=== PATIENT | male | born 1950 | race Caucasian/White ===

== ENCOUNTER 2018-02-21 06:05 | Observation (INO) | payer OTHER ==
[2018-02-19 09:21] VITALS: BP 131/78
[2018-02-19 09:25] LABS: BASOPHILS % (AUTO) 0.7 % (0.0-5.0); EOSINOPHILS % (AUTO) 1.4 % (0.0-8.0); HEMATOCRIT 44.2 % (42-54); LYMPHOCYTES % (AUTO) 19.5 % (21.0-51.0); MEAN CORPUSCULAR HEMOGLOBIN 33.3 pg (27.0-33.0); MEAN CORPUSCULAR HGB CONC 34.3 g/dL (32.0-36.0); MEAN CORPUSCULAR VOLUME 97.1 fL (79-99); MONOCYTES % (AUTO) 9.1 % (3.0-13.0); NEUTROPHILS % (AUTO) 69.3 % (40.0-77.0); PLATELET COUNT (AUTO) 288 K/uL (130-400); RED BLOOD CELL COUNT(AUTO) 4.55 MIL/uL (4.50-6.20); RED CELL DISTRIBUTION WIDTH 13.6 % (11.0-15.5); WHITE BLOOD COUNT (AUTO) 6.5 K/uL (4.8-10.8)
[2018-02-19 09:35] LABS: CREATININE 1.2 mg/dL (0.5-1.5); POTASSIUM 4.2 mmol/L (3.5-5.1)
[2018-02-19 09:37] LABS: INR 1.32 (0.85-1.15); PARTIAL THROMBOPLASTIN TIME 33.8 SEC (26.3-35.5); PROTHROMBIN TIME 13.8 SEC (9.6-11.6)
[2018-02-21] VITALS (11 sets, daily range): BP systolic 109–137; BP diastolic 72–94
[~2018-02-21] VITALS: Ht 175.3 cm; Wt 133.9 kg
[~2018-02-21 06:05] MED LIST: AMIT25TA9 PO; ATOR20TA65 PO; BUPR-47 PO; CARB15DR94 OU; CHOL100018 PO; FURO40TA5 PO; HC530C TP; HYDR-4068 PO; ISOS30TA6 PO; LISI10TA7 PO; MECL-111 PO; MEMA10TA20 PO; METO100T14 PO; MIRT30TA6 PO; NITR0.4T50 SL; PREG100C PO; RANO10003 PO; RIVA6CAP5 PO; TOPI50TA24 PO; UREA TP; WARF-57 PO
[2018-02-21] MEDS ORDERED: SODIUM CHLORIDE 0.9% 1000ML 1,000 ML IV SCH (08:00)
[2018-02-21] MEDS ORDERED: LIDOCAINE HCL 1% MDV 50ML VIAL ONE (10:09)
[2018-02-21] MEDS ORDERED: MEPERIDINE-PF 25 MG/ML SYG ONE ×2 (10:19→11:51)
[2018-02-21] MEDS ORDERED: MIDAZOLAM HCL 1 MG/ML 2ML VIAL ONE ×2 (10:19→11:51)
[2018-02-21] MEDS ORDERED: CEFAZOLIN SODIUM 1 GM VIAL ONE (10:29)
[2018-02-21] MEDS ORDERED: BUPIVACAINE/PF 0.25% 50ML VIAL IJ ONE (10:29)
[2018-02-21] MEDS ORDERED: IODIXANOL 320 MG/ML 100 ML VIAL ONE (10:39)
[2018-02-21] MEDS ORDERED: OCTYL 2-CYANOACRYLATE 1 EACH TP ONE (11:47)
[2018-02-21] MEDS ORDERED: PROPOFOL 10 MG/ML 20ML VIAL IV ONE (11:53)
[2018-02-21] MEDS ORDERED: ACETAMINOPHEN-CODEINE 300/30MG TAB PO PRN ×2 (12:30)
[2018-02-21] MEDS ORDERED: ONDANSETRON HCL 4 MG/2 ML VIAL IV PRN (12:30)
[2018-02-21] MEDS ORDERED: NITROGLYCERIN 0.4 MG SL TAB SL PRN (12:30)
[2018-02-21] MEDS ORDERED: ACETAMINOPHEN 325 MG TAB PO PRN ×2 (12:30)
[2018-02-21] MEDS ORDERED: ARTIFICAL TEARS SOL 15 ML OU PRN (13:00)
[2018-02-21] MEDS ORDERED: HYDROCORTISONE 0.5% 30 GM OINT TP PRN (13:00)
[2018-02-21] MEDS ORDERED: HYDROCORTISONE 1% 28.35 GM CREAM TP PRN (13:15)
[2018-02-21] MEDS ORDERED: MIRTAZAPINE 15 MG TABLET PO SCH (21:00)
[2018-02-21] MEDS ORDERED: LISINOPRIL 10 MG TABLET PO SCH (21:00)
[2018-02-21] MEDS ORDERED: BUPROPION HCL 150 MG PO SCH (21:00)
[2018-02-21] MEDS ORDERED: TOPIRAMATE 100 MG TAB PO SCH (21:00)
[2018-02-21] MEDS ORDERED: AMITRIPTYLINE HCL 25 MG TABLET PO SCH (21:00)
[2018-02-21] MEDS: PREGABALIN 100 MG CAPSULE PO SCH (21:23)
[2018-02-21] MEDS: MECLIZINE HCL 25 MG TABLET PO SCH (21:24)
[2018-02-21] MEDS: CEFAZOLIN SODIUM 1 GM VIAL IVP SCH (21:24)
[2018-02-21] MEDS: MEMANTINE HCL 5 MG TABLET PO SCH (21:24)
[2018-02-21] MEDS: METOPROLOL TARTRATE 50 MG TAB PO SCH (21:24)
[2018-02-21] MEDS: RANOLAZINE 500 MG TAB.SR.12H PO SCH (21:28)
[2018-02-21] MEDS ORDERED: BUPROPION HCL 150 MG TABLET.SA PO SCH (21:46)
[2018-02-22 03:00] VITALS: BP 142/95
[2018-02-22] MEDS: CEFAZOLIN SODIUM 1 GM VIAL IVP SCH (04:30)
[2018-02-22 07:28] VITALS: BP 129/88
[2018-02-22] MEDS: MEMANTINE HCL 5 MG TABLET PO SCH (08:18)
[2018-02-22] MEDS: PREGABALIN 100 MG CAPSULE PO SCH (08:18)
[2018-02-22] MEDS: METOPROLOL TARTRATE 50 MG TAB PO SCH (08:19)
[2018-02-22] MEDS: MECLIZINE HCL 25 MG TABLET PO SCH (08:19)
[2018-02-22] MEDS: RANOLAZINE 500 MG TAB.SR.12H PO SCH (08:24)
[2018-02-22] MEDS ORDERED: WARFARIN SODIUM 5 MG TAB PO SCH (09:00)
[2018-02-22] MEDS ORDERED: CHOLECALCIFEROL 1000 UNIT PO SCH (09:00)
[2018-02-22] MEDS ORDERED: RIVASTIGMINE 6 MG PO SCH (09:00)
[2018-02-22] MEDS ORDERED: ISOSORBIDE MONO 30MG TAB SR PO SCH (09:00)
[2018-02-22] MEDS ORDERED: UREA 20% TP PRN (09:00)
[2018-02-22] MEDS ORDERED: ATORVASTATIN CALCIUM 10 MG TABLET PO SCH (09:00)
[2018-02-22] MEDS ORDERED: FUROSEMIDE 40 MG TABLET PO SCH (09:00)
== END 2018-02-22 11:20 | disposition home or self-care (01) ==
LOC: DAH 06:05 → 2AH 06:06
PROVIDERS: ADMIT Internal Medicine Cardiovascular Disease; ATTEND Internal Medicine Cardiovascular Disease
DX: I48.2 Chronic atrial fibrillation (principal); I25.5 Ischemic cardiomyopathy; I11.0 Hypertensive heart disease with heart failure; I50.42 Chronic combined systolic (congestive) and diastolic (congestive) heart failure; I49.5 Sick sinus syndrome; I25.10 Atherosclerotic heart disease of native coronary artery without angina pectoris; E78.5 Hyperlipidemia, unspecified; E66.9 Obesity, unspecified; I48.0 Paroxysmal atrial fibrillation; Z82.49 Family history of ischemic heart disease and other diseases of the circulatory system; Z98.84 Bariatric surgery status; Z68.41 Body mass index [BMI] 40.0-44.9, adult; Z95.1 Presence of aortocoronary bypass graft; Z79.01 Long term (current) use of anticoagulants; Z79.899 Other long term (current) drug therapy
CPT/HCPCS: 33225; 33229; 36415; 71046; 80048; 85025; 85610; 85730; 93005 ×2; 96374; 96376; A4606; C1769 ×3; C1894; C1900; C2621; G0378 ×29; J0690 ×3; J2175 ×2; J2250 ×2; J2704; J3490 ×2; J7030; Q9967; 99156; 99157

== ENCOUNTER → 2020-03-17 | Outpatient (CLI) | payer OTHER ==
[~2020-03-17] MED LIST changes: -MECL-111 PO; +MECL-160 PO; -MEMA10TA20 PO; +MEMA10TA55 PO; +RIVA6CAP14 PO; -RIVA6CAP5 PO
== END | disposition home or self-care (01) ==
LOC: SHCH 09:37
PROVIDERS: ATTEND Internal Medicine Cardiovascular Disease
DX: I08.1 Rheumatic disorders of both mitral and tricuspid valves (principal); I73.9 Peripheral vascular disease, unspecified; I10 Essential (primary) hypertension
CPT/HCPCS: 93306; 93356; 93925; 93970

== ENCOUNTER → 2022-11-07 | Outpatient (CLI) | payer OTHER ==
[~2022-11-07] MED LIST changes: -BUPR-47 PO; +BUPR-49 PO; +BUPR-74 PO; +CARB-242 OU; -CARB15DR94 OU; +CARB1DRO4 OP; +FURO40TA7 PO; -ISOS30TA6 PO; +ISOS30TA92 PO; +LISI10TA24 PO; -LISI10TA7 PO; +LISI40TA9 PO; +MIRT-93 PO; -MIRT30TA6 PO; +RANO500T2 PO; +REGADENOSON 0.4 MG/5 ML PF SYG IVP ONE; -RIVA6CAP14 PO; +RIVA6CAP18 PO; +TOPI-255 PO; -TOPI50TA24 PO; +WARF5TAB PO
== END | disposition home or self-care (01) ==
LOC: SHCH 07:51
PROVIDERS: ATTEND Internal Medicine Cardiovascular Disease
DX: I25.10 Atherosclerotic heart disease of native coronary artery without angina pectoris (principal); I10 Essential (primary) hypertension; E78.5 Hyperlipidemia, unspecified; I48.20 Chronic atrial fibrillation, unspecified; Z95.1 Presence of aortocoronary bypass graft; Z95.0 Presence of cardiac pacemaker; Z95.5 Presence of coronary angioplasty implant and graft; Z79.01 Long term (current) use of anticoagulants; Z79.899 Other long term (current) drug therapy
CPT/HCPCS: 78452; 96374; 93017; J2785; A9500 ×2

== ENCOUNTER 2023-01-06 06:59 | Observation (INO) | payer OTHER ==
[2023-01-04 11:05] LABS: BASOPHILS # (AUTO) 0.05 K/uL (0.00-0.20); EOSINOPHILS # (AUTO) 0.13 K/uL (0.00-0.70); EOSINOPHILS % (AUTO) 2.6 % (0.0-8.0); HEMATOCRIT 42.3 % (42-54); IMMATURE GRANULOCYTE ABSOLUTE 0.03 K/uL (0-1); LYMPHOCYTES # (AUTO) 1.3 K/uL (1.0-4.8); LYMPHOCYTES % (AUTO) 25.9 % (21.0-51.0); MEAN CORPUSCULAR HEMOGLOBIN 33.8 pg (27.0-33.0); MEAN CORPUSCULAR HGB CONC 33.6 g/dL (32.0-36.0); MEAN CORPUSCULAR VOLUME 100.7 fL (79-99); MONOCYTES # (AUTO) 0.6 K/uL (0.1-1.0); MONOCYTES % (AUTO) 12.8 % (3.0-13.0); NEUTROPHILS # (AUTO) 2.9 K/uL (1.8-7.7); NEUTROPHILS % (AUTO) 57.1 % (40.0-77.0); PLATELET COUNT (AUTO) 180 K/uL (130-400); RED CELL DISTRIBUTION WIDTH 13.2 % (11.0-15.5)
[2023-01-04 11:12] LABS: CREATININE 1.2 mg/dL (0.5-1.5); POTASSIUM 4.3 mmol/L (3.5-5.1)
[2023-01-04 11:21] VITALS: BP 159/91; PULSE 94; RESP 18
[2023-01-04 11:24] LABS: APPEARANCE,URINE CLOUDY (CLEAR); BILIRUBIN,URINE NEGATIVE (NEGATIVE); COLOR,URINE YELLOW (YELLOW); GLUCOSE, URINE (UA) NEGATIVE (NEGATIVE); KETONES,URINE NEGATIVE (NEGATIVE); LEUKOCYTE ESTERASE ,URINE 75 Leu/uL (NEGATIVE); NITRATE,URINE NEGATIVE (NEGATIVE); OCCULT BLOOD,URINE NEGATIVE (NEGATIVE); PH,URINE 7.5 (5.0-8.0); PROTEIN,URINE 20 mg/dL (NEGATIVE); UROBILINOGEN,URINE 3 mg/dL (0.2-1.0)
[2023-01-04 11:32] LABS: INR 2.13 (0.85-1.15); PROTHROMBIN TIME 23.5 SEC (9.6-11.6)
[2023-01-04 11:33] LABS: PARTIAL THROMBOPLASTIN TIME 40.4 SEC (26.3-35.5)
[2023-01-04 11:55] LABS: B-TYPE NATRIURETIC PEPTIDE 118 pg/mL (0-100)
[2023-01-04 11:57] LABS: ADD UA MICROSCOPIC YES
[2023-01-04 12:02] LABS: BACTERIA,URINE RARE /HPF (None Seen); SQUAMOUS EPITHELIAL CELL,UR RARE /HPF (0-2); TRANSITIONAL EPI CELLS,URINE RARE /HPF (None Seen); WBC CLUMP RARE /HPF (0-1); WBC,URINE 26-50 /HPF (0-1)
[~2023-01-06] VITALS: Ht 177.8 cm; Wt 137.4 kg
[2023-01-06] VITALS (13 sets, daily range): BP systolic 100–150; BP diastolic 69–95; PULSE 70–86; RESP 11–18; O2SAT 97
[~2023-01-06 06:59] MED LIST changes: -BUPR-74 PO; -CARB-242 OU; -CARB1DRO4 OP; -CHOL100018 PO; +FURO20TA4 PO; -FURO40TA5 PO; -FURO40TA7 PO; -HC530C TP; -LISI10TA24 PO; -LISI40TA9 PO; +LISI5TAB21 PO; -MECL-160 PO; +METO-482 PO; -METO100T14 PO; -RANO500T2 PO; -REGADENOSON 0.4 MG/5 ML PF SYG IVP ONE; -UREA TP; -WARF-57 PO; +WARF4TAB72 PO; -WARF5TAB PO
[2023-01-06] MEDS ORDERED: 0.9%NACL 1000ML 1,000 ML IV ONE ×2 (07:58→08:21)
[2023-01-06] MEDS ORDERED: IOHEXOL 350 MG/ML 100ML INFUS..BTL IV ONE (11:24)
[2023-01-06] MEDS ORDERED: LIDOCAINE HCL 400MG/20ML VIAL ONE (11:24)
[2023-01-06] MEDS ORDERED: MEPERIDINE-PF 25 MG/ML SYG ONE ×3 (11:24→12:30)
[2023-01-06] MEDS ORDERED: NITROGLYCERIN 50MG VIAL ONE (11:24)
[2023-01-06] MEDS ORDERED: MIDAZOLAM HCL 1 MG/ML 2ML VIAL ONE ×3 (11:24→12:30)
[2023-01-06] MEDS ORDERED: HEPARIN 10,000 UNIT/10ML (1,000 UNIT/ML) VIAL ONE (11:24)
[2023-01-06] MEDS ORDERED: SODIUM BICARB 50MEQ 50ML VIAL 50 ML ONE (11:24)
[2023-01-06] MEDS: 0.9%NACL 10ML VIAL IVP SCH ×2 (13:00→21:00)
[2023-01-06] MEDS ORDERED: NITROGLYCERIN 0.4 MG SL TAB SL PRN (13:30)
[2023-01-06] MEDS ORDERED: HYDROCODONE/ACETAMINOPHEN 10/325 MG TAB PO PRN (13:30)
[2023-01-06] MEDS ORDERED: ACETAMINOPHEN 325 MG TAB PO PRN (17:00)
[2023-01-06] MEDS: CEPHALEXIN 500 MG CAPSULE PO SCH (18:07)
[2023-01-06] MEDS ORDERED: NON-FORMULARY MEDICATION 1 EACH (Ranolazine (Ranexa) 1,000 MG) PO SCH (21:00)
[2023-01-06] MEDS ORDERED: AMITRIPTYLINE 25 MG TABLET PO SCH (21:00)
[2023-01-06] MEDS ORDERED: METOPROLOL TARTRATE 50 MG PO SCH (21:00)
[2023-01-06] MEDS ORDERED: NON-FORMULARY MEDICATION 1 EACH (Memantine HCl 10 MG) PO SCH (21:00)
[2023-01-06] MEDS ORDERED: MIRTAZAPINE 15 MG TABLET PO SCH (21:00)
[2023-01-06] MEDS ORDERED: NON-FORMULARY MEDICATION 1 EACH (Topiramate 50 MG) PO SCH (21:00)
[2023-01-06] MEDS ORDERED: TOPIRAMATE 25 MG TABLET PO SCH (21:00)
[2023-01-06] MEDS: MEMANTINE HCL 5 MG TABLET PO SCH (21:24)
[2023-01-06] MEDS: PREGABALIN 100 MG CAPSULE PO SCH (21:24)
[2023-01-06] MEDS: RANOLAZINE 500 MG TAB.SR.12H PO SCH (21:24)
[2023-01-06] MEDS: METOPROLOL TARTRATE 50 MG TAB PO SCH (21:24)
[2023-01-07 04:17] VITALS: BP 135/87; PULSE 71; RESP 18
[2023-01-07] MEDS: 0.9%NACL 10ML VIAL IVP SCH (04:20)
[2023-01-07 04:42] LABS: BASOPHILS # (AUTO) 0.06 K/uL (0.00-0.20); EOSINOPHILS # (AUTO) 0.15 K/uL (0.00-0.70); EOSINOPHILS % (AUTO) 2.5 % (0.0-8.0); HEMATOCRIT 40.2 % (42-54); IMMATURE GRANULOCYTE ABSOLUTE 0.02 K/uL (0-1); LYMPHOCYTES # (AUTO) 1.8 K/uL (1.0-4.8); LYMPHOCYTES % (AUTO) 29.8 % (21.0-51.0); MEAN CORPUSCULAR HGB CONC 33.6 g/dL (32.0-36.0); MEAN CORPUSCULAR VOLUME 101.3 fL (79-99); MONOCYTES # (AUTO) 0.7 K/uL (0.1-1.0); NEUTROPHILS # (AUTO) 3.3 K/uL (1.8-7.7); NEUTROPHILS % (AUTO) 54.4 % (40.0-77.0); PLATELET COUNT (AUTO) 165 K/uL (130-400); RED BLOOD CELL COUNT(AUTO) 3.97 MIL/uL (4.50-6.20); RED CELL DISTRIBUTION WIDTH 13.1 % (11.0-15.5); WHITE BLOOD COUNT (AUTO) 6.1 K/uL (4.8-10.8)
[2023-01-07 05:03] LABS: INR 1.18 (0.85-1.15); PROTHROMBIN TIME 13.5 SEC (9.6-11.6)
[2023-01-07 05:04] LABS: PARTIAL THROMBOPLASTIN TIME 30.2 SEC (26.3-35.5)
[2023-01-07 05:09] LABS: ALANINE AMINOTRANSFERASE 26 U/L (12-78); ALBUMIN 3.1 g/dL (3.5-5.0); ASPARTATE AMINOTRANSFERASE 17 U/L (10-37); BILIRUBIN,TOTAL 1.1 mg/dL (0.2-1.0); CARBON DIOXIDE 24 mmol/L (21-32); CHLORIDE 108 mmol/L (101-111); CREATININE 1.1 mg/dL (0.5-1.5); GLOMERULAR FILTR. RATE CALC 71 mL/min (>90); GLUCOSE,RANDOM 116 mg/dL (70-105); POTASSIUM 3.9 mmol/L (3.5-5.1); SODIUM SERUM 140 mmol/L (136-145); TOTAL PROTEIN, SERUM 6.4 g/dL (6.0-8.3); UREA NITROGEN, BLOOD 20 mg/dL (7-18)
[2023-01-07 05:31] LABS: CRP QUANTITATIVE < 2.00 mg/L (0.00-9.0)
[2023-01-07] MEDS: CEPHALEXIN 500 MG CAPSULE PO SCH (06:17)
[2023-01-07 07:34] VITALS: O2SAT 97
[2023-01-07 08:03] VITALS: BP 122/82; PULSE 70; RESP 16
[2023-01-07] MEDS: MEMANTINE HCL 5 MG TABLET PO SCH (08:06)
[2023-01-07] MEDS: METOPROLOL TARTRATE 50 MG TAB PO SCH (08:06)
[2023-01-07] MEDS: PREGABALIN 100 MG CAPSULE PO SCH (08:06)
[2023-01-07] MEDS: RANOLAZINE 500 MG TAB.SR.12H PO SCH (08:10)
[2023-01-07] MEDS ORDERED: ATORVASTATIN 10 MG TABLET PO SCH (09:00)
[2023-01-07] MEDS ORDERED: BUPROPION HCL 150 MG PO SCH (09:00)
[2023-01-07] MEDS ORDERED: ASPIRIN 81 MG EC TAB PO SCH (09:00)
[2023-01-07] MEDS ORDERED: MIRTAZAPINE PO SCH (09:00)
[2023-01-07] MEDS ORDERED: FUROSEMIDE 20 MG TABLET PO SCH (09:00)
[2023-01-07] MEDS ORDERED: LISINOPRIL 2.5 MG TABLET PO SCH (09:00)
[2023-01-07] MEDS ORDERED: ISOSORBIDE MONO 30MG SR TAB PO SCH (09:00)
[2023-01-07 11:38] VITALS: BP 95/62; PULSE 76; RESP 18
== END 2023-01-07 12:35 | disposition home or self-care (01) ==
LOC: DAH 06:59 → DAHIP 07:00 → DAH 07:00 → 2AH 17:48
PROVIDERS: ADMIT Internal Medicine; ATTEND Internal Medicine
DX: I25.10 Atherosclerotic heart disease of native coronary artery without angina pectoris (principal); I48.21 Permanent atrial fibrillation; I10 Essential (primary) hypertension; E78.5 Hyperlipidemia, unspecified; G89.29 Other chronic pain; I87.8 Other specified disorders of veins; R60.0 Localized edema; E66.9 Obesity, unspecified; N39.0 Urinary tract infection, site not specified; F03.A0 Unspecified dementia, mild, without behavioral disturbance, psychotic disturbance, mood disturbance, and anxiety; Z79.01 Long term (current) use of anticoagulants; I25.810 Atherosclerosis of coronary artery bypass graft(s) without angina pectoris; Z98.84 Bariatric surgery status; Z79.899 Other long term (current) drug therapy; Z79.82 Long term (current) use of aspirin; Z95.0 Presence of cardiac pacemaker; Z95.5 Presence of coronary angioplasty implant and graft; Z68.41 Body mass index [BMI] 40.0-44.9, adult; Z98.890 Other specified postprocedural states
CPT/HCPCS: 80048; 83880; 85025 ×2; 85610 ×2; 85730 ×2; 87088; 81001; 36415 ×2; 71045; 93005; 93459; 87077; 87186; 83735; 80053; 86140; 97161; 97039; 97116; 84145; C1894 ×2; C1760; Q9965; G0378 ×24; J3490 ×3; J7030 ×2; J2250 ×3; J2175 ×3; J1644; Q9967; A4215; A4223 ×3; A4222; A4221; A4663; A4216; A4606; 99156; 99157

== ENCOUNTER → 2024-05-28 | Outpatient (CLI) | payer OTHER ==
[~2024-05-28] MED LIST changes: +MEMA10TA21 PO; -MEMA10TA55 PO; -TOPI-255 PO; +TOPI-97 PO
--- NOTE | 2024-05-28 17:28 | HMCSR ---
APPROVED REPORT EXAM: Two-dimensional and M-mode echocardiogram with Doppler and color Doppler. INDICATION ICD: R06.00 Dyspnea Surgery/Intervention Pacemaker: 2D Dimensions RVDd4.8 cmLVEF(%)45.2 (>50%)LVED Vol(simp.)131.0 mL IVSd1.0 (0.7-1.1cm)FS(%)23 %LVES Vol(simp.)73.0 mL LVDd5.2 (3.8-5.6cm)Ao Root(2D)3.1 (2.0-3.7cm)LVEF(%, simp.)44 % PWd1.1 (0.7-1.1cm)LVOT diam2.1 (1.8-2.4cm)LA ESV INDEX (BP)32.64 mL/m2 LVDs4.0 (2.5-4.0cm)IVC diam2.6 cm Aortic Valve AoV Vmax1.5 m/[place] GR8.7 mmHgLVOT Vmax1.2 m/s AoV VTI0.3 mAo Mean GR5.2 mmHgLVOT VTI0.20 m PAMELA (VMAX)2.2 cm2Al P1/2T904 msAVA (VTI) 2.2 cm2 Mitral Valve MV E Vmax88.3 cm/sDECEL Rnea543 ms MV A Vmax25.8 cm/sP 1/2 T52 ms E/A ratio3.4MVA (PHT)4.2 cm2 MR Max PG69 mmHg TDI E/E' Zmiuqg53.5E/E' Lateral9.6 Pulmonary Valve PV Vmax0.9 m/sPV VTI0.16 mPV Mean GR2 mmHg PV Peak GR3.0 mmHg Tricuspid Valve TR Vmax2.8 m/sRAP (EST) 8 nbJsZPVC19.4 mmHg TR Peak GR30.4 mmHg Left Ventricle Left ventricular cavity size is normal. There is borderline left ventricular hypertrophy. LVEF is 40% . No left ventricle thrombus noted on this study. Indeterminate diastolic dysfunction. Right Ventricle The right ventricle is moderately dilated. Right ventricular systolic function is moderately reduced. Atria The left atrium size is normal. The right atrium is mildly dilated. Aortic Valve Aortic valve is trileaflet. Aortic valve leaflets are sclerotic but open well. Mild to regurgitation. There is no aortic valvular stenosis. Mitral Valve Mitral valve leaflets are mildly sclerotic but open well. Mitral regurgitation is mild to moderate. T here is no mitral valve stenosis. Tricuspid Valve The tricuspid valve leaflets appear normal. There is moderate to severe tricuspid regurgitation. Righ t ventricular systolic pressure is estimated at 30-40 mmHg. Pulmonic Valve Pulmonic valve is not well visualized. There is trace pulmonic valvular regurgitation. Great Vessels The aortic root is normal in size. IVC is dilated and collapses >50% with inspiration. Pericardium No pericardial effusion. Other Information Quality : Technically Limited Technically limited study due to body habitus. Conclusion Left ventricular cavity size is normal. LVEF is 40%. The right ventricle is moderately dilated. Right ventricular systolic function is moderately reduced. Right ventricular systolic function is moderately reduced. The left atrium size is normal. The right atrium is mildly dilated. Aortic valve is trileaflet. Aortic valve leaflets are sclerotic but open well. Mild to regurgitation. There is no aortic valvular stenosis. Mitral valve leaflets are mildly sclerotic but open well. Mitral regurgitation is mild to moderate. There is moderate to severe tricuspid regurgitation. Right ventricular systolic pressure is estimated at 30-40 mmHg. There is trace pulmonic valvular regurgitation. The aortic root is normal in size. IVC is dilated and collapses >50% with inspiration. No pericardial effusion.
== END | disposition home or self-care (01) ==
LOC: SHCH 14:08
PROVIDERS: ATTEND Internal Medicine Cardiovascular Disease
DX: I08.3 Combined rheumatic disorders of mitral, aortic and tricuspid valves (principal); R06.00 Dyspnea, unspecified; Z95.0 Presence of cardiac pacemaker
CPT/HCPCS: 93306